=== PATIENT | female | born 1995 | race Caucasian/White ===

== ENCOUNTER 2019-08-27 04:09 | Emergency (ER) | payer OTHER, SELFPAY ==
[2019-08-27 04:10] VITALS: BP 108/69; PULSE 112; RESP 17; TEMP 36.8; O2SAT 97; BMI 18.0
--- NOTE | 2019-08-27 04:20 | ED.VISSUMM ---
- ER Visit Summary Date of Service: 08/27/19 Chief Complaint: Allergic reaction History of Present Illness: The patient is a 24 F who states that she is having an allergic reaction. Started about 15 minutes ago. She feels like her eyes and face are swelling. She feels mildly short of breath. No tongue swelling. She denies any new medications. No new irritants such as soaps, shampoos, lotions or any other topical applicants. She was drinking alcohol this evening and had some tequila which is new for her. She has never had anything like this before. She took nothing for this at home. Physical Examination: Vital signs reviewed. HEENT exam shows that her pupils are equal. She does have some swelling around the eyes. Her tongue is not swollen. Uvula midline. Heart is regular rate and rhythm without murmurs. Lungs are clear to auscultation. Abdomen is soft and nontender. Extremities reveal no edema. Skin exam normal. Neurologic exam normal. Test Results: None performed Emergency Department Course and Treatment: The patient is given Benadryl and Solu-Medrol. Upon reevaluation she was mildly improved. There was no signs of anaphylaxis. No pulmonary symptoms. It is unclear what she was actually allergic to. It could be some ingredients in the alcohol she was drinking tonight. At this point I will discharge her with prednisone. She will continue Benadryl as well. She will follow-up with the [facility] Treatment Plan: [] Disposition: Discharge Impression: Allergic reaction This note was generated with [employer] dictation software. It may contain incorrect words, spelling, and punctuation that were not noted in review of the chart prior to signing ED Disposition - Plan for ED Patient: Disposition: Home or Assisted Living Instructions: ALLERGIC REACTION, Other (General) Prescriptions: Prednisone [Deltasone] 40 mg PO DAILY #8 tab Prescription Printed Referrals: Care Physician,No Primary [Primary Care Provider] -
[2019-08-27] MEDS: DiphenhydrAMINE 50 MG/ML Syringe 25 MG IV (04:22)
[2019-08-27] MEDS: MethylPREDNISolone 125 MG/2 ML Vial IV (04:22)
[2019-08-27 05:32] VITALS: BP 94/60; PULSE 85; RESP 16; O2SAT 97
== END 2019-08-27 05:44 | disposition home or self-care (01) ==
PROVIDERS: Emergency Provider Emergency Medicine
DX: T78.40XA Allergy, unspecified, initial encounter (principal); X58.XXXA Exposure to other specified factors, initial encounter
CPT/HCPCS: 96374; 96375; 99284; A4216